=== PATIENT | male | born 1955 | race Caucasian/White ===

== ENCOUNTER → 2024-05-05 | Outpatient (CLI) | payer MEDICARE, OTHER ==
[2024-05-05 10:26] LABS: BASO # 0.1 10*3/uL (0.0-0.1); EOS # 0.1 10*3/uL (0.0-0.4); EOS % 2.5 % (1.0-4.0); HEMATOCRIT 41.6 % (42.0-52.0); LYMPH # 1.6 10*3/uL (1.3-4.4); LYMPH % 29.8 % (27.0-41.0); MEAN CORPUSCULAR HGB CONC 34.4 g/dl (33.0-37.0); MONO # 0.6 10*3/uL (0.1-1.0); MONO % 11.9 % (3.0-9.0); NEUT # 2.8 10*3/uL (2.3-7.9); NEUT % 54.4 % (47.0-73.0); PLATELET COUNT AUTOMATED 221 10*3/uL (130-400); RED BLOOD COUNT 4.62 10*6/uL (4.50-5.90); RED CELL DISTRI WIDTH 12.6 % (0-14.5); RETICULOCYTE % 2.12 % (0.50-2.50); WHITE BLOOD COUNT 5.2 10*3/uL (4.8-10.8)
[2024-05-05 10:28] LABS: BILIRUBIN Negative (Negative); BLOOD 2+ (Negative); CLARITY Clear (Clear); COLOR Yellow (Yellow); GLUCOSE Negative (Negative); KETONE Negative (Negative); LEUKO ESTERASE Negative (Negative); NITRITE Negative (Negative); SPECIFIC GRAVITY 1.015 (1.001-1.030)
[2024-05-05 11:08] LABS: ALKALINE PHOSPHATASE 74 U/L (46-116); BUN 17 mg/dl (9-23); CHLORIDE 106 mmol/L (98-107); CHOLESTEROL 153 mg/dL (<200); GAMMA GLUTAMYL TRANSPEPTIDASE 25 U/L (0-73); LDL CHOLESTEROL 75 mg/dL (9-159); POTASSIUM 3.9 mmol/L (3.4-5.1); SGPT/ALT 47 U/L (5-49); T3 UPTAKE 25.5 % (22.4-36.7); THYROXINE (T4) TOTAL 6.6 ug/dl (4.5-10.9); TOTAL PROTEIN 6.8 gm/dL (6.0-8.0); TRIGLYCERIDES 206 mg/dl (<150); URIC ACID 7.5 mg/dL (3.7-9.2)
[2024-05-05 11:10] LABS: VITAMIN D, 25-HYDROXY 25.8 ng/mL (30-100)
[2024-05-05 11:18] LABS: RBC 21-30 rbc/hpf (0-2)
[2024-05-06 22:06] LABS: ANTI-DSDNA ANTIBODIES <1 IU/mL (0-9)
== END | disposition home or self-care (01) ==
LOC: LAB 09:59
PROVIDERS: ATTEND Family Medicine
DX: Z12.5 Encounter for screening for malignant neoplasm of prostate (principal); R53.83 Other fatigue; E78.5 Hyperlipidemia, unspecified; E55.9 Vitamin D deficiency, unspecified

== ENCOUNTER → 2024-08-30 | Outpatient (CLI) | payer MEDICARE, OTHER ==
[2024-08-30 09:38] LABS: BASO % 0.6 % (0.0-1.0); EOS # 0.1 10*3/uL (0.0-0.4); EOS % 1.5 % (1.0-4.0); HEMATOCRIT 44.7 % (42.0-52.0); MEAN CORPUSCULAR HGB 30.2 pg (27.0-31.0); MEAN CORPUSCULAR HGB CONC 32.9 g/dl (33.0-37.0); MEAN PLATELET VOLUME 9.9 fl (9.6-12.3); MONO # 0.6 10*3/uL (0.1-1.0); MONO % 11.5 % (3.0-9.0); NEUT # 2.6 10*3/uL (2.3-7.9); NEUT % 54.6 % (47.0-73.0); PLATELET COUNT AUTOMATED 217 10*3/uL (130-400); RED BLOOD COUNT 4.86 10*6/uL (4.50-5.90); RED CELL DISTRI WIDTH 13.5 % (0-14.5); RETICULOCYTE % 2.01 % (0.50-2.50); WHITE BLOOD COUNT 4.8 10*3/uL (4.8-10.8)
[2024-08-30 09:42] LABS: BILIRUBIN Negative (Negative); BLOOD Trace-Lysed (Negative); CLARITY Clear (Clear); COLOR Yellow (Yellow); GLUCOSE Negative (Negative); KETONE 1+ (Negative); LEUKO ESTERASE Negative (Negative); NITRITE Negative (Negative); PH 5.5 (4.5-8.0); UROBILINOGEN 0.2 E.U./dl (0.0-1.0)
[2024-08-30 10:09] LABS: RBC 0-2 rbc/hpf (0-2); WBC 0-2 wbc/hpf (0-5)
[2024-08-30 10:12] LABS: ALKALINE PHOSPHATASE 65 U/L (46-116); BUN 20 mg/dl (9-23); CHLORIDE 105 mmol/L (98-107); CHOLESTEROL 150 mg/dL (<200); GAMMA GLUTAMYL TRANSPEPTIDASE 15 U/L (0-73); LDL CHOLESTEROL 98 mg/dL (9-159); POTASSIUM 4.3 mmol/L (3.4-5.1); SGPT/ALT 47 U/L (5-49); T3 UPTAKE 31.9 % (22.4-36.7); TOTAL PROTEIN 7.2 gm/dL (6.0-8.0); TRIGLYCERIDES 87 mg/dl (<150); URIC ACID 9.2 mg/dL (3.7-9.2)
[2024-08-30 10:13] LABS: VITAMIN D, 25-HYDROXY 36.7 ng/mL (30-100)
== END | disposition home or self-care (01) ==
LOC: LAB 09:06
PROVIDERS: ATTEND Family Medicine
DX: R79.89 Other specified abnormal findings of blood chemistry (principal); R53.83 Other fatigue; E78.5 Hyperlipidemia, unspecified; E55.9 Vitamin D deficiency, unspecified